=== PATIENT | male | born 1975 | race African-American/Black ===

== ENCOUNTER 2020-08-12 13:14 | Emergency (ER) | payer SELFPAY ==
[~2020-08-12] VITALS: Ht 182.9 cm; Wt 104.3 kg
[2020-08-12] MEDS ORDERED: ONDANSETRON ODT4 MG PO (13:30)
== END 2020-08-12 14:51 | disposition home or self-care (01) ==
LOC: ER 13:24
DX: U07.1 COVID-19 (principal); R06.02 Shortness of breath; R05 Cough; R51.9 Headache, unspecified; I10 Essential (primary) hypertension; F17.210 Nicotine dependence, cigarettes, uncomplicated
CPT/HCPCS: 99282